=== PATIENT | female | born 1975 | race Caucasian/White ===

== ENCOUNTER 2017-06-29 16:29 | Emergency (ER) | payer OTHER ==
[2017-06-29 16:40] VITALS: BP 103/66
[2017-06-29 20:10] LABS: Hematocrit 40 % (35-47); Hemoglobin 13.3 g/dl (12.0-16.0); Mean Corpuscular HGB Conc 33 g/dl (31-36); Mean Corpuscular Hemoglobin 30 pg (27-31); Mean Corpuscular Volume 90 fL (80-97); Mean Platelet Volume 11 um3 (7.4-10.4); Red Blood Count 4.44 10^6/ul (4.0-5.4); Red Cell Distribution Width 14 % (10.5-15); White Blood Count 4.3 10^3/ul (3.5-10.8)
[2017-06-29 20:16] LABS: Albumin 3.8 g/dL (3.2-5.2); BUN/Creatinine Ratio 10.4 (8-20); Calcium 8.7 mg/dL (8.6-10.3); EGFR African American 104.7 (>60); EGFR Non-African American 81.4 (>60); Globulin 2.5 g/dL (2-4); Potassium 3.7 mmol/L (3.5-5.0); Total Bilirubin 0.2 mg/dL (0.2-1.0); Total Protein 6.3 g/dL (6.4-8.9)
--- NOTE | 2017-07-02 09:29 | UC ---
Progress - Progress Note Progress Note: urine cx is negative. pt was placed on doxy. lyme titer neg. Note is not completed from day of visit. d/c dx was fever in adult. pt temp 102. Unable to determine whether pt should cont abx or not b/c note is incomplete. Pt should f/u with PCP for further determination. Or f/u can be deferred to provider who treated pt.
--- NOTE | 2017-08-10 15:07 | UC ---
HPI Febrile Illness - HPI Summary HPI Summary: 42 YEAR OLD FEMALE PRESENTS WITH FEVER, CHILLS, AND BODY ACHES. - History of Current Complaint Chief Complaint: UCGeneralIllness Time Seen by Provider: 06/29/17 16:48 Hx Obtained From: Patient Hx Last Menstrual Period: LAST WK Onset/Duration: Started Hours Ago Timing: Constant Initial Severity: Moderate Current Severity: Moderate Pain Intensity: 7 Pain Scale Used: 0-10 Numeric - Allergy/Home Medications Allergies/Adverse Reactions: Allergies Allergy/AdvReac Type Severity Reaction Status Date / Time Erythromycin AdvReac GI/vomiting Verified 06/29/17 16:40 Home Medications: Home Medications Hydrocodone-Acetaminophen [Hydrocodone Bitartrate/AC 7.5-300 mg] 1 tab PO Q4H PRN 06/29/17 [History Confirmed 06/29/17] PMH/Surg Hx/FS Hx/Imm Hx Previously Healthy: Yes - Surgical History Surgical History: Yes Surgery Procedure, Year, and Place: gallbladder. appendectomy - Family History Known Family History: Positive: Unknown - Social History Alcohol Use: None Substance Use Type: Marijuana Smoking Status (MU): Current Every Day Smoker Type: Cigarettes Amount Used/How Often: 1 PPD Length of Time of Smoking/Using Tobacco: 20 YRS Household Exposure Type: Cigarettes Review of Systems Constitutional: Fever, Chills, Fatigue Skin: Negative Eyes: Negative ENT: Negative Respiratory: Negative Cardiovascular: Negative Gastrointestinal: Negative Genitourinary: Negative Motor: Negative Neurovascular: Negative Musculoskeletal: Negative Neurological: Negative Psychological: Negative All Other Systems Reviewed And Are Negative: Yes Physical Exam Triage Information Reviewed: Yes Appearance: Ill-Appearing Vital Signs: Initial Vital Signs Temp 39.0 C 06/29/17 16:33 Pulse 129 06/29/17 16:33 Resp 18 06/29/17 16:33 BP 103/66 06/29/17 16:33 Pulse Ox 99 06/29/17 16:33 Vital Signs Reviewed: Yes Eye Exam: Normal ENT Exam: Normal ENT: Positive: Pharyngeal erythema Dental Exam: Normal Neck exam: Normal Neck: Positive: 1 Respiratory Exam: Normal Respiratory: Positive: Decreased breath sounds Cardiovascular: Positive: Tachycardia Abdominal Exam: Normal Musculoskeletal Exam: Normal Neurological Exam: Normal Psychological Exam: Normal Skin Exam: Normal Course/Dx - Diagnoses Clinic Provider Diagnoses: fever. chills. bodyache Discharge - Discharge Plan Condition: Stable Disposition: HOME Prescriptions: DOXYcycline CAP(*) [DOXYcycline 100MG CAP(*)] 100 mg PO BID #42 cap Patient Education Materials: Fever in Adults (ED) Referrals: Emmy Bates [Primary Care Provider] - As Soon As Possible
== END 2017-06-29 17:26 | disposition home or self-care (01) ==
LOC: UCCORT 16:29
DX: R50.9 Fever, unspecified (principal); M79.1 Myalgia; R00.0 Tachycardia, unspecified; Z32.02 Encounter for pregnancy test, result negative; Z88.1 Allergy status to other antibiotic agents; Z90.49 Acquired absence of other specified parts of digestive tract; F12.90 Cannabis use, unspecified, uncomplicated; F17.210 Nicotine dependence, cigarettes, uncomplicated
CPT/HCPCS: 36415; 80053; 81003; 84702; 85025; 86618; 87086; 87502; 87651; 99212; G0463

== ENCOUNTER 2019-10-15 13:58 | Emergency (ER) | payer OTHER ==
[2019-10-15 14:24] VITALS: BP 120/61
--- NOTE | 2019-10-15 14:35 | UC ---
Throat Pain/Nasal Wilian HPI - HPI Summary HPI Summary: 44-year-old female who has had a sore throat for approximately 2 weeks. She states she was just experiencing a "flareup" of her lupus and thought the sore throat was because of that. She denies any cold symptoms. She denies any fever or chills. - History of Current Complaint Chief Complaint: UCGeneralIllness Stated Complaint: ST Time Seen by Provider: 10/15/19 14:02 Hx Obtained From: Patient Hx Last Menstrual Period: LAST WK ?: No Onset/Duration: Gradual Onset Severity: Moderate Pain Intensity: 6 Cough: None Associated Signs & Symptoms: Positive: Negative - Allergies/Home Medications Allergies/Adverse Reactions: Allergies Allergy/AdvReac Type Severity Reaction Status Date / Time erythromycin base Allergy Vomiting Verified 10/15/19 14:25 Home Medications: Home Medications Aspirin 81 mg CHEW TAB* [Aspirin Low Dose TAB*] 81 mg PO DAILY 10/15/19 [ History Confirmed 10/15/19] Oxycodone HCl 5 mg PO TID 10/15/19 [History Confirmed 10/15/19] PMH/Surg Hx/FS Hx/Imm Hx Previously Healthy: Yes Respiratory History: Asthma GI/ History: Ulcer - Surgical History Surgical History: Yes Surgery Procedure, Year, and Place: gallbladder. appendectomy - Family History Known Family History: Positive: Unknown - Social History Alcohol Use: None Substance Use Type: Marijuana Substance Use Comment - Amount & Last Used: medical Smoking Status (MU): Former Smoker Type: Cigarettes Amount Used/How Often: 1 PPD Length of Time of Smoking/Using Tobacco: 20 YRS When Did the Patient Quit Smoking/Using Tobacco: 2017 Household Exposure Type: Cigarettes Review of Systems All Other Systems Reviewed And Are Negative: Yes ENT: Positive: Sore Throat Is Patient Immunocompromised?: No Physical Exam Triage Information Reviewed: Yes Appearance: Well-Appearing, No Pain Distress, Well-Nourished Vital Signs: Initial Vital Signs Temp 98.7 F 10/15/19 14:19 Pulse 81 10/15/19 14:19 Resp 18 10/15/19 14:19 BP 120/61 10/15/19 14:19 Pulse Ox 98 10/15/19 14:19 Vital Signs Reviewed: Yes Eyes: Positive: Conjunctiva Clear ENT: Positive: Pharyngeal erythema - Pharyngeal erythema with white patches consistent with oral candidiasis., TMs normal, Uvula midline Neck: Positive: Supple, Nontender, No Lymphadenopathy Respiratory: Positive: Lungs clear, Normal breath sounds, No respiratory distress, No accessory muscle use Cardiovascular: Positive: RRR, No Murmur, Pulses Normal, Brisk Capillary Refill Musculoskeletal Exam: Normal Neurological Exam: Normal Psychological Exam: Normal Skin Exam: Normal Throat Pain/Nasal Course/Dx - Course Course Of Treatment: Patient is comfortable here. Rapid strep test was negative. I am going to treat her for thrush with Diflucan. She is to follow-up with her primary care provider if no improvement by next Monday. She does have an appointment with her primary care provider on 20 October. - Differential Dx/Diagnosis Provider Diagnosis: Thrush, oral Discharge ED - Sign-Out/Discharge Documenting (check all that apply): Patient Departure All imaging exams completed and their final reports reviewed: No Studies - Discharge Plan Condition: Fair Disposition: HOME Prescriptions: Fluconazole 100 MG TAB* [Diflucan 100 MG TAB*] 100 mg PO DAILY 10 Days #11 tab Patient Education Materials: Oral Candidiasis (ED) Referrals: Emmy Bates [Primary Care Provider] - Additional Instructions: Take 2 tablets of the fluconazole today and then 1 tablet daily for 10 days. Definite follow-up with your primary care provider if any worsening symptoms or if no improvement after 4 or 5 days. - Billing Disposition and Condition Condition: FAIR Disposition: Home
--- OUTSIDE RECORDS SUMMARY | 2019-10-15 16:45 | XMS REPORT | Continuity of Care Document ---
:1975 External Reference #:[id number] Author Name Chuck Luu DO, MPH Address [address] [place] [address], [address] [place] [address] Care Team Providers Name Role Phone Jennifer Gasca MD - Internal Medicine Care Team Information Svp Marketing Problems Active Problems Provider Date Sacrococcygeal disorders, not elsewhere Chuck Luu DO MPH Onset: 2018 classified Solitary sacroiliitis Cuhck Luu DO MPH Onset: 09/21/2019 Synovitis and tenosynovitis Chuck Luu DO, MPH Onset: 09/21/2019 Somatic dysfunction of lumbar region Chuck Luu DO, MPH Onset: 09/21/2019 Low back pain Chuck Luu, DO, MPH Onset: 09/21/2019 Somatic dysfunction of pelvic region Chuck Luu, DO, MPH Onset: 09/21/2019 Arthralgia of the pelvic region and thigh Chuck Luu, DO, MPH Onset: 2018 Somatic dysfunction of sacroiliac joint Chuck Luu, DO, MPH Onset: 2018 Chronic pain Chuck Luu, DO, MPH Onset: 09/21/2019 Social History Type Date Description Comments Sex Unknown ETOH Use Denies alcohol use Tobacco Use Start: Unknown End: Unknown Patient is a former smoker Recreational Drug Use Denies Drug Use Smoking Status Reviewed: 09/21/19 Patient is a former smoker Allergies, Adverse Reactions, Alerts Active Allergies Reaction Severity Comments Date Prednisone 07/10/2018 Anti-Depressants 07/10/2018 Doxycycline 07/10/2018 Erythromycin 07/10/2018 Medications Active Medications SIG Qnty Indications Ordering Provider Date Oxycodone HCL si by mouth 90tabs Chuck Luu DO, 07/25/2018 5mg every 8 hours as MPH Tablets directed chronic pain patient Vitamin D3 Super 1 by mouth daily Unknown Strength 2000Unit Capsules CBD Oil vape five times a Unknown day THC vape 5 times a Unknown day Prednisone si by mouth Unknown 5mg Tablets every day as directed Zantac 1 by mouth twice Unknown 150mg Tablets a day Immunizations Description No Information Available Vital Signs Date Vital Result Comment 10/01/2019 10:37am BP Systolic 128 mmHg BP Diastolic 84 mmHg Heart Rate 86 /min Respiratory Rate 20 /min Height 61 inches 5'1" Weight 124.00 lb Pain Level 6 Pain at this time. Pain Level With Medicine 5 on average with meds Pain Level Without Medicine 9 without meds BMI (Body Mass Index) 23.4 kg/m2 09/21/2019 8:48am BP Systolic 122 mmHg BP Diastolic 78 mmHg Heart Rate 74 /min Respiratory Rate 20 /min Height 61 inches 5'1" Weight 131.00 lb Pain Level 6 Pain at this time. Pain Level With Medicine 6 on average with meds Pain Level Without Medicine 9 without meds Pain Level After Procedure 3 BP Systolic Recheck 120 mmHg Pulse: 72 BP Diastolic Recheck 70 mmHg Pulse: 72 BMI (Body Mass Index) 24.7 kg/m2 Procedures Date Code Description Status 09/21/2019 25915 Omt 3-4 Body Regions Completed 09/21/2019 Arthrocentesis/Aspiration/Inj Of Major Joint Or Bursa W/ Completed Ultra 09/21/2019 Arthrocentesis/Aspiration/Inj Of Major Joint Or Bursa W/ Completed Ultra 09/16/2019 03153 Omt 3-4 Body Regions Completed 08/30/2019 94635 Omt 1-2 Body Regions Completed 08/30/2019 Arthrocentesis/Aspiration/Inj Of Major Joint Or Bursa W/ Completed Ultra 07/10/2019 Arthrocentesis/Aspiration/Inj Of Major Joint Or Bursa W/ Completed Ultra 06/25/2019 21731 Omt 5-6 Body Regions Completed 05/23/2019 03765 Omt 5-6 Body Regions Completed 05/04/2019 25689 Omt 3-4 Body Regions Completed 05/04/2019 Arthrocentesis/Aspiration/Inj Of Major Joint Or Bursa W/ Completed Ultra 04/24/2019 27731 Therapeutic, Prophylactic Or Diagnostic Injection Subq/Im Completed 04/02/2019 Arthrocentesis/Aspiration/Inj Of Major Joint Or Bursa W/ Completed Ultra Medical Devices Description No Information Available Encounters Type Date Location Provider Dx Diagnosis Office Visit 09/21/2019 Main Office as Of Chuck Luu DO G89.29 Other chronic pain 9:00a 12/14/13 MPH M46.1 Sacroiliitis, not elsewhere classified M53.3 Sacrococcygeal disorders, not elsewhere classified M99.04 Segmental and somatic dysfunction of sacral region M25.551 Pain in right hip M25.552 Pain in left hip M99.05 Segmental and somatic dysfunction of pelvic region M54.5 Low back pain M99.03 Segmental and somatic dysfunction of lumbar region M65.88 Other synovitis and tenosynovitis, other site Office Visit 09/16/2019 1:00p Main Office as Chuck Luu G89.29 Other chronic Of 12/14/13 DO, MPH pain M54.2 Cervicalgia M99.01 Segmental and somatic dysfunction of cervical region M54.6 Pain in thoracic spine M99.02 Segmental and somatic dysfunction of thoracic region M54.5 Low back pain M99.03 Segmental and somatic dysfunction of lumbar region M46.1 Sacroiliitis, not elsewhere classified Z79.891 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 (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 Office Visit 08/30/2019 1:30p Main Office as Chuck Luu G89.29 Other chronic Of 12/14/13 DO, MPH pain M25.551 Pain in right hip M25.552 Pain in left hip M99.05 Segmental and somatic dysfunction of pelvic region M46.1 Sacroiliitis, not elsewhere classified Office Visit 07/10/2019 3:00p Main Office as Chuck Luu G89.29 Other chronic Of 12/14/13 DO, MPH pain M54.2 Cervicalgia M54.6 Pain in thoracic spine M54.5 Low back pain M53.3 Sacrococcygeal disorders, not elsewhere classified M25.551 Pain in right hip M25.552 Pain in left hip Z79.891 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 (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 Office Visit 06/25/2019 10:00a Main Office as Chuck Luu G89.29 Other chronic Of 12/14/13 DO, MPH pain M54.2 Cervicalgia M99.01 Segmental and somatic dysfunction of cervical region M54.6 Pain in thoracic spine M99.02 Segmental and somatic dysfunction of thoracic region M54.5 Low back pain M99.03 Segmental and somatic dysfunction of lumbar region M53.3 Sacrococcygeal disorders, not elsewhere classified M99.04 Segmental and somatic dysfunction of sacral region M25.551 Pain in right hip M25.552 Pain in left hip Z79.891 [employer] (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 M99.05 Segmental and somatic dysfunction of pelvic region Office Visit 05/23/2019 10:15a Main Office as Chuck Luu G89.29 Other chronic Of 12/14/13 DO, MPH pain 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 M54.5 Low back pain M99.03 Segmental and somatic dysfunction of lumbar region M54.2 Cervicalgia M99.01 Segmental and somatic dysfunction of cervical region M54.6 Pain in thoracic spine M99.02 Segmental and somatic dysfunction of thoracic region M53.3 Sacrococcygeal disorders, not elsewhere classified R53.83 Other fatigue Z79.891 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 (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 M99.04 Segmental and somatic dysfunction of sacral region G90.3 Multi-system degeneration of the autonomic nervous system M25.552 Pain in left hip M25.551 Pain in right hip M99.05 Segmental and somatic dysfunction of pelvic region Office Visit 05/04/2019 9:00a Main Office as Chuck Luu G89.29 Other chronic Of 12/14/13 DO, MPH pain 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 M53.3 Sacrococcygeal disorders, not elsewhere classified M99.04 Segmental and somatic dysfunction of sacral region M54.5 Low back pain M99.03 Segmental and somatic dysfunction of lumbar region M25.551 Pain in right hip M99.05 Segmental and somatic dysfunction of pelvic region Office Visit 04/24/2019 11:15a Main Office as Chuck Luu G89.29 Other chronic Of 12/14/13 DO, MPH pain M53.3 Sacrococcygeal disorders, not elsewhere classified M54.5 Low back pain 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 R53.83 Other fatigue Z79.891 [employer] (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 Office Visit 04/02/2019 10:15a Main Office as Luu, Chuck, G89.29 Other chronic Of 12/14/13 DO, MPH pain 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 M53.3 Sacrococcygeal disorders, not elsewhere classified M54.5 Low back pain Assessments Date Code Description Provider 10/01/2019 G89.29 Other chronic pain Luu, Chuck, DO, MPH 10/01/2019 M25.551 Pain in right hip Luu, Chuck, DO, MPH 10/01/2019 M25.552 Pain in left hip Luu, Chuck, DO, MPH 10/01/2019 M54.2 Cervicalgia Luu, Chuck, DO, MPH 10/01/2019 Z79.891 [employer] (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 Luu, Chuck , DO, MPH 09/21/2019 G89.29 Other chronic pain Luu, Chuck, DO, MPH 09/21/2019 M46.1 Sacroiliitis, not elsewhere classified Luu, Chuck, DO, MPH 09/21/2019 M53.3 Sacrococcygeal disorders, not elsewhere Luu, Chuck, DO, MPH classified 09/21/2019 M99.04 Segmental and somatic dysfunction of sacral Luu, Chuck, DO, MPH region 09/21/2019 M25.551 Pain in right hip Luu, Chuck, DO, MPH 09/21/2019 M25.552 Pain in left hip Luu, Chuck, DO, MPH 09/21/2019 M99.05 Segmental and somatic dysfunction of pelvic Luu, Chuck, DO, MPH region 09/21/2019 M54.5 Low back pain Luu, Chuck, DO, MPH 09/21/2019 M99.03 Segmental and somatic dysfunction of lumbar Luu, Chuck, DO, MPH region 09/21/2019 M65.88 Other synovitis and tenosynovitis, other Luu, Chuck, DO , MPH site 09/16/2019 G89.29 Other chronic pain Luu, Chuck, DO, MPH 09/16/2019 M54.2 Cervicalgia Luu, Chuck, DO, MPH 09/16/2019 M99.01 Segmental and somatic dysfunction of Luu, Chuck, DO, MPH cervical region 09/16/2019 M54.6 Pain in thoracic spine Luu, Chuck, DO, MPH 09/16/2019 M99.02 Segmental and somatic dysfunction of Luu, Chuck, DO, MPH thoracic region 09/16/2019 M54.5 Low back pain Luu, Chuck, DO, MPH 09/16/2019 M99.03 Segmental and somatic dysfunction of lumbar Luu, Chuck, DO, MPH region 09/16/2019 M46.1 Sacroiliitis, not elsewhere classified Luu, Chuck, DO, MPH 09/16/2019 Z79.891 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 (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 Luu, Chuck , DO, MPH 08/30/2019 G89.29 Other chronic pain Luu, Chuck, DO, MPH 08/30/2019 M25.551 Pain in right hip Luu, Chuck, DO, MPH 08/30/2019 M25.552 Pain in left hip Luu, Chuck, DO, MPH 08/30/2019 M99.05 Segmental and somatic dysfunction of pelvic Luu, Chuck, DO, MPH region 08/30/2019 M46.1 Sacroiliitis, not elsewhere classified Luu, Chuck, DO, MPH 07/10/2019 G89.29 Other chronic pain Luu, Chuck, DO, MPH 07/10/2019 M54.2 Cervicalgia Luu, Chuck, DO, MPH 07/10/2019 M54.6 Pain in thoracic spine Luu, Chuck, DO, MPH 07/10/2019 M54.5 Low back pain Luu, Chuck, DO, MPH 07/10/2019 M53.3 Sacrococcygeal disorders, not elsewhere Luu, Chuck, DO, MPH classified 07/10/2019 M25.551 Pain in right hip Luu, Chuck, DO, MPH 07/10/2019 M25.552 Pain in left hip Luu, Chuck, DO, MPH 07/10/2019 Z79.891 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 (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 Luu, Chuck , DO, MPH 06/25/2019 G89.29 Other chronic pain Luu, Chuck, DO, MPH 06/25/2019 M54.2 Cervicalgia Luu, Chuck, DO, MPH 06/25/2019 M99.01 Segmental and somatic dysfunction of Luu, Chuck, DO, MPH cervical region 06/25/2019 M54.6 Pain in thoracic spine Luu, Chuck, DO, MPH 06/25/2019 M99.02 Segmental and somatic dysfunction of Luu, Chuck, DO, MPH thoracic region 06/25/2019 M54.5 Low back pain Luu, Chuck, DO, MPH 06/25/2019 M99.03 Segmental and somatic dysfunction of lumbar Luu, Chuck, DO, MPH region 06/25/2019 M53.3 Sacrococcygeal disorders, not elsewhere Luu, Chuck, DO, MPH classified 06/25/2019 M99.04 Segmental and somatic dysfunction of sacral Luu, Chuck, DO, MPH region 06/25/2019 M25.551 Pain in right hip Luu, Chuck, DO, MPH 06/25/2019 M25.552 Pain in left hip Luu, Chuck, DO, MPH 06/25/2019 Z79.891 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 (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 Luu, Chuck , DO, MPH 06/25/2019 M99.05 Segmental and somatic dysfunction of pelvic Luu, Chuck, DO, MPH region 05/23/2019 G89.29 Other chronic pain Luu, Chuck, DO, MPH 05/23/2019 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 Luu, Chuck, DO, MPH arthritis of multiple sites 05/23/2019 M54.5 Low back pain Luu, Chuck, DO, MPH 05/23/2019 M99.03 Segmental and somatic dysfunction of lumbar Luu, Chuck, DO, MPH region 05/23/2019 M54.2 Cervicalgia Luu, Chuck, DO, MPH 05/23/2019 M99.01 Segmental and somatic dysfunction of Luu, Chuck, DO, MPH cervical region 05/23/2019 M54.6 Pain in thoracic spine Luu, Chuck, DO, MPH 05/23/2019 M99.02 Segmental and somatic dysfunction of Luu, Chuck, DO, MPH thoracic region 05/23/2019 M53.3 Sacrococcygeal disorders, not elsewhere Luu, Chuck, DO, MPH classified 05/23/2019 R53.83 Other fatigue Luu, Chuck, DO, MPH 05/23/2019 Z79.891 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 (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 Luu, Chuck , DO, MPH 05/23/2019 M99.04 Segmental and somatic dysfunction of sacral Luu, Chuck, DO, MPH region 05/23/2019 G90.3 Multi-system degeneration of the autonomic Luu, Chuck, DO , MPH nervous system 05/23/2019 M25.552 Pain in left hip Luu, Chuck, DO, MPH 05/23/2019 M25.551 Pain in right hip Luu, Chuck, DO, MPH 05/23/2019 M99.05 Segmental and somatic dysfunction of pelvic Luu, Chuck, DO, MPH region 05/04/2019 G89.29 Other chronic pain Luu, Chuck, DO, MPH 05/04/2019 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 Luu, Chuck, DO, MPH arthritis of multiple sites 05/04/2019 M53.3 Sacrococcygeal disorders, not elsewhere Luu, Chuck, DO, MPH classified 05/04/2019 M99.04 Segmental and somatic dysfunction of sacral Luu, Chuck, DO, MPH region 05/04/2019 M54.5 Low back pain Luu, Chuck, DO, MPH 05/04/2019 M99.03 Segmental and somatic dysfunction of lumbar Luu, Chuck, DO, MPH region 05/04/2019 M25.551 Pain in right hip Luu, Chuck, DO, MPH 05/04/2019 M99.05 Segmental and somatic dysfunction of pelvic Luu, Chuck, DO, MPH region 04/24/2019 G89.29 Other chronic pain Luu, Chuck, DO, MPH 04/24/2019 M53.3 Sacrococcygeal disorders, not elsewhere Chuck Luu DO, MPH classified 04/24/2019 M54.5 Low back pain Chuck Luu DO, MPH 04/24/2019 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 LuuChuck martinez DO, MPH arthritis of multiple sites 04/24/2019 R53.83 Other fatigue LuuChuck martinez DO, MPH 04/24/2019 Z79.891 [employer] (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 Chuck Luu DO, MPH 04/02/2019 G89.29 Other chronic pain Chuck Luu DO, MPH 04/02/2019 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 LuuChuck martinez DO, MPH arthritis of multiple sites 04/02/2019 M53.3 Sacrococcygeal disorders, not elsewhere Chuck Luu DO, MPH classified 04/02/2019 M54.5 Low back pain Chuck Luu DO, MPH Plan of Treatment Future Appointment(s):10/08/2019 10:00 am - Chuck Luu DO MPH at Main Office as Of 12/14/1410 12:30 pm - Chuck Luu DO MPH at Main Office as Of 12/14/1411 10:30 am - Chuck Luu DO MPH at Main Office as Of 12/14 - Chuck Luu DO, MPHG89.29 Other chronic painComments:Chronic. Symptoms and complaints discussed and reviewed today. No significant changes in physical findings. Continue current medical pain management.M25.551 Pain in right hipNew Xrays:Hip, Arthrography, RT, Ordered: 10/01/19Comments:Chronic. Symptoms and complaints discussed and reviewed today. No significant changes in physical findings. Continue current medical pain management.M25.552 Pain in left hipComments:Chronic. Symptoms and complaints discussed and reviewed today. No significant changes in physical findings. Continue current medical pain management.M54.2 CervicalgiaComments:Chronic. Symptoms and complaints discussed and reviewed today. No significant changes in physical findings. Continue current medical pain management.Z79.891 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 (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New Labs:Urine Drug Screen, Ordered: 10/01/19Comments:Urine drug screen sample taken. Rapid Point of Care Cup was reviewed in office with patient. Will send out UDT Rapid to [facility] lab for confirmation testing. Urine Drug Testing (UDT) was done today to monitor opiate use and to monitor possible use of illicit substances. I will discuss the results at the next appointment from the [facility] lab.The following tests were ordered:6 AM, AMPH, PRESTON, EZEKIEL, BUP, CARIS, COCM, ETG, FENT, MCSHSG, OPI, OXY, PCP, TAPEN, XTSY, ZOLP. A urine drug test (UDT) was ordered for this patient and collected on site today. Creatinine has been ordered as well for specimen validity, not for kidney function. Preliminary UDT results are not final and should not be used to determine patient care or plan of treatment. Initially a qualitative immunoassay screen will be done. Any inconsistent or positive findings will be further tested with a more comprehensive quantitative confirmation LCMS study. It is part of the treatment process of prescribing controlled substances and is considered standard of care.AllComments:Continue current medical pain management; injection therapy, osteopathic manipulation, PT / modalities, and consults as needed to manage chronic pain.Non - opioid pain management discussed and optionsdiscussed.Side effects discussed; anticipatory guidance given. Patient clearly understand and agree with all medical treatments and suggestions. All medicines prescribed are adequate and appropriate for this patient's complaint of pain, medical history, physical, and personal goals.Goals of Treatment are to provide adequate and appropriate multidisciplinary medical pain management to increase/ maintain patient's quality of life and functionality while maintaining satisfactory side effect profile andminimizing detention end-organ damage. Importance of regular nutrition throughout the day discussed.Activity as toleratedContinue with PCP Functional Status Description No Information Available Mental Status Description No Information Available Referrals Description No Information Available
--- OUTSIDE RECORDS SUMMARY | 2019-10-15 16:45 | XMS REPORT | Continuity of Care Document ---
:1975 External Reference #:[id number] Author Name Julieta Cottrell, DOUBLE BOTTOM DRIVER Address [address] [place] [address] Care Team Providers Name Role Phone Jennifer Gasca MD - Internal Medicine Care Team Information Loop Sewer Fernando Butler MD - Rheumatology Care Team Information Loop Sewer [phone] Problems Active Problems Provider Date Lyme disease Aleja Galindo M.D. Onset: 09/11/2017 Joint pain Aleja Galindo M.D. Onset: 09/11/2017 Abnormal sputum Aleja Galindo M.D. Onset: 09/11/2017 Chest pain Aleja Galindo M.D. Onset: 10/23/2017 Dyspnea Aleja Galindo M.D. Onset: 10/23/2017 Alopecia Aleja Galindo M.D. Onset: 12/11/2017 Anemia Aleja Galindo M.D. Onset: 12/11/2017 Beau's lines Aleja Galindo M.D. Onset: 12/11/2017 Iron deficiency Delonte Hendrix DO Onset: 12/14/2017 Systemic lupus erythematosus Jennifer Gasca MD Onset: 02/08/2018 Chronic combined systolic and Jennifer Gasca MD Onset: 02/08/2018 diastolic heart failure Mild cognitive disorder Aleja Galindo M.D. Onset: 02/12/2018 Palpitations Jennifer Gasca MD Onset: 02/08/2018 Counseling Jennifer Gasca MD Onset: 02/08/2018 Dizziness and giddiness Jennifer Gasca MD Onset: 05/11/2018 Immunization Jennifer Gasca MD Onset: 05/11/2018 Adult health examination Jennifer Gasca MD Onset: 05/11/2018 Vitamin D deficiency Jennifer Gasca MD Onset: 05/11/2018 Bilateral carpal tunnel syndrome Jennifer Gasca MD Onset: 05/11/2018 Pain in right arm Dilia Anguiano MD Onset: 05/22/2018 Pain in left arm Dilia Anguiano MD Onset: 05/22/2018 Skin sensation disturbance Dilia Anguiano MD Onset: 05/22/2018 Gynecologic examination Catia Nguyen CNM Onset: 06/07/2018 Encounter for removal and Catia Nguyen CNM Onset: 06/07/2018 reinsertion of intrauterine contraceptive device Unspecified visual loss Catia Nguyen CNM Onset: 06/07/2018 IUD check Catia Nguyen CNM Onset: 07/06/2018 Mild cognitive disorder Alice Walter MS, HOME CARE AIDE-C, Onset: 11/30/2018 CNM Social History Type Date Description Comments Sex Unknown Tobacco Use Start: Unknown End: Quit June 2017 Unknown Smoking Status Reviewed: 12/04/18 Quit June 2017 ETOH Use Denies alcohol use Recreational Drug Use Denies Drug Use Tobacco Use Start: Unknown End: Patient is a former Since a teenager Unknown smoker Exercise Type/Frequency Does not exercise Allergies, Adverse Reactions, Alerts Active Allergies Reaction Severity Comments Date Erythromycin Nausea and Vomiting 03/30/2012 Erythromycin Nausea/Vomiting 07/12/2017 Ipratropium Made Joints Hurt 07/12/2017 Prednisone Nausea and Vomiting 08/08/2017 Doxycycline Nausea and Vomiting 08/15/2017 Medications Active Medications SIG Qnty Indications Ordering Provider Date Medical Marijuana prn Unknown Aspirin Ec Low Dose 1 daily 90tabs Jennifer Gasca MD 81mg Tablets Oxycodone HCL 1 tab three Chuck Luu MD 5mg Tablets times a day Immunizations CPT Code Status Date Vaccine Lot # [id number] Given 05/11/2018 Pneumovax Injection [id number] Given 05/11/2018 Tdap injection [id number] Vital Signs Date Vital Result Comment 10/01/2019 2:39pm BP Systolic 144 mmHg BP Diastolic 92 mmHg Body Temperature 98.6 F Heart Rate 88 /min Respiratory Rate 16 /min Weight 123.38 lb O2 % BldC Oximetry 97 % Pain Level 0 08/29/2019 3:08pm BP Systolic 129 mmHg BP Diastolic 70 mmHg Body Temperature 98.6 F Heart Rate 80 /min Respiratory Rate 16 /min Weight 128.50 lb O2 % BldC Oximetry 96 % Pain Level 0 Results Test Acquired Date Facility Test Result H/L Range Note Iron-Tibc-%Sa 09/23/2019 [facility] Serum Iron 141 g/dL Normal 50-170 1 t [address] [place], [place] [id number] [phone] Total Iron Binding Capacity 313 g/dL Normal 250-450 Transferrin %Saturation 45 % Normal 12-57 Laboratory test 09/23/2019 [facility] Ferritin 105 ng/mL Normal 8-252 finding [address] [place], [place] [id number] [phone] CBC W/Automated 09/23/2019 [facility] White Blood 16.1 K/uL High 3.1-10.[address] [place] [address] [phone] Red Blood Count 4.66 M/uL Normal 3.90-5.40 Hemoglobin 14.9 gm/dL Normal 11.6-15.8 Hematocrit 43.8 % Normal 36.0-46.1 Mean Cell Volume 94.0 fl Normal 80.9-99.0 Mean Corpuscular HGB 32.0 pg Normal 25.9-32.7 Mean Corpuscular HGB Conc 34.0 g/dL Normal 30.8-34.3 Platelet Count 291 K/uL Normal 155-360 Red Cell Distri Width SD 47.1 fl High 36-47 Red Cell Distri Width %CV 13.7 % Normal 11.7-14.4 Mean Platelet Volume 12.0 fl Normal 8.9-12.4 Neut% 88.2 % High 40.4-72.8 Lymph % 4.4 % Low 20.0-42.0 Gentry % 6.4 % Normal 4.3-13.2 Eo% 0.0 % Normal 0.0-6.6 Bas% 0.2 % Normal 0.0-1.1 Immature Grans 0.8 % Normal 0.0-5.0 NRBC % 0.0 /100WBC < 10/ 100 WBC Neut# 14.22 K/uL High 1.8-7.0 Lymph # 0.71 K/uL Low 1.0-4.0 Gentry # 1.03 K/uL High 0.3-0.9 Eos # 0.00 K/uL Normal 0.0-0.5 Baso # 0.03 K/uL Normal 0.0-0.1 Immature Grans Absolute 0.13 K/uL NRBC # 0.00 K/uL Comprehensive 09/23/2019 [facility] Glucose 105 mg/dL Normal 74-106 Metabolic Panel [address] [place], [place] [id number] [phone] BUN 16 mg/dL Normal 7-18 Creatinine 0.8 mg/dL Normal 0.6-1.3 Glom Filtration Rate, Estimate >60 mL/min >60 If >60 mL/min >60 2 BUN/Creat 20.0 ratio Sodium 137 mmol/L Normal 136-145 Potassium 3.5 mmol/L Normal 3.5-5.1 Chloride 106 mmol/L Normal 98-107 Carbon Dioxide 26 mmol/L Normal 21-32 Anion Gap 5 mEq/L Low 8-16 Calcium 9.3 mg/dL Normal 8.5-10.1 Total Protein 7.6 g/dL Normal 6.4-8.2 Albumin 4.4 g/dL Normal 3.4-5.0 Globulin 3.2 g/dL Normal 1.9-4.3 Alb/Glob 1.4 ratio Bilirubin,Total 0.6 mg/dL Normal 0.2-1.0 Sgot/Ast 15 U/L Normal 15-37 SGPT/Alt 25 U/L Normal 12-78 Alkaline Phosphatase 93 U/L Normal 45-117 Vitamin B12 And 09/23/2019 [facility] Vitamin B12 465 pg/mL Normal 193-[address] [place], [place] [address] [phone] Folic Acid 6.4 ng/mL Normal 3.1-17.5 TSH Reflex 09/02/2019 [facility] Thyroid Stim 1.15 uIU/mL Normal 0.30-4.20 3 FT4 And/Or [address] Hormone FT3 [place] [address] [phone] Reflex add FT3? Y Reflex add FT4? Y Laboratory test 08/29/2019 [facility] Vitamin <pending> [address] D,25-[place] [address] [phone] Vitamin B12 And 08/29/2019 [facility] Vitamin B12 669 pg/mL Normal 193- Folate [address] [place] [address] [phone] Folic Acid 7.3 ng/mL Normal 3.1-17.5 Laboratory test 08/29/2019 [facility] Ferritin 19 ng/mL Normal 8-252 finding [address] [place], [place] [address] [phone] Iron-Tibc-%Sat 08/29/2019 [facility] Serum Iron 91 g/dL Normal 50-170 [address] [place] [address] [phone] Total Iron Binding Capacity 403 g/dL Normal 250-450 Transferrin %Saturation 23 % Normal 12-57 LDL Cholesterol 08/29/2019 [facility] Cholesterol 235 mg/dL High <200 5 Profile [address] [place] [address] [phone] Triglycerides 68 mg/dL <150 6 HDL Cholesterol 58 mg/dL >40 7 LDL-Cholesterol 163 mg/dL < 100 8 Comprehensive 08/29/2019 [facility] Glucose 85 mg/dL Normal 74-106 Metabolic Panel [address] [place] [address] [phone] BUN 11 mg/dL Normal 7-18 Creatinine 0.8 mg/dL Normal 0.6-1.3 Glom Filtration Rate, Estimate >60 mL/min >60 If >60 mL/min >60 9 BUN/Creat 13.7 ratio Sodium 136 mmol/L Normal 136-145 Potassium 3.8 mmol/L Normal 3.5-5.1 Chloride 104 mmol/L Normal 98-107 Carbon Dioxide 29 mmol/L Normal 21-32 Anion Gap 3 mEq/L Low 8-16 Calcium 9.2 mg/dL Normal 8.5-10.1 Total Protein 8.6 g/dL High 6.4-8.2 Albumin 4.7 g/dL Normal 3.4-5.0 Globulin 3.9 g/dL Normal 1.9-4.3 Alb/Glob 1.2 ratio Bilirubin,Total 0.4 mg/dL Normal 0.2-1.0 Sgot/Ast 16 U/L Normal 15-37 SGPT/Alt 19 U/L Normal 12-78 Alkaline Phosphatase 126 U/L High 45-117 CBC W/Automated 08/29/2019 [facility] White Blood 15.7 K/uL High 3.1-10.[address] [place] [address] [phone] Red Blood Count 5.15 M/uL Normal 3.90-5.40 Hemoglobin 15.6 gm/dL Normal 11.6-15.8 Hematocrit 47.8 % High 36.0-46.1 Mean Cell Volume 92.8 fl Normal 80.9-99.0 Mean Corpuscular HGB 30.3 pg Normal 25.9-32.7 Mean Corpuscular HGB Conc 32.6 g/dL Normal 30.8-34.3 Platelet Count 359 K/uL Normal 155-360 Red Cell Distri Width SD 46.1 fl Normal 36-47 Red Cell Distri Width %CV 13.3 % Normal 11.7-14.4 Mean Platelet Volume 11.9 fl Normal 8.9-12.4 Neut% 86.1 % High 40.4-72.8 Lymph % 8.1 % Low 20.0-42.0 Gentry % 4.7 % Normal 4.3-13.2 Eo% 0.0 % Normal 0.0-6.6 Bas% 0.3 % Normal 0.0-1.1 Immature Grans 0.8 % Normal 0.0-5.0 NRBC % 0.0 /100WBC < 10/ 100 WBC Neut# 13.54 K/uL High 1.8-7.0 Lymph # 1.28 K/uL Normal 1.0-4.0 Gentry # 0.74 K/uL Normal 0.3-0.9 Eos # 0.00 K/uL Normal 0.0-0.5 Baso # 0.05 K/uL Normal 0.0-0.1 Immature Grans Absolute 0.12 K/uL NRBC # 0.00 K/uL Laboratory test 08/29/2019 [facility] Vitamin 39.5 30.0-100.0 [address] D,25-Hydroxy ng/[place] [address] [phone] 1 E55.9 E61.1 2 Note: Persistent reduction for 3 months or more in an eGFR <60 mL/min/1.73 m2 defines CKD. Patients with eGFR values >/=60 mL/min/1.73 m2 may also have CKD if evidence of persistent proteinuria is present. The original MDRD equation for estimated GFR is not valid for patients less than 18 years of age. Additional information may be found at www.kdoqi.org. 3 E61.1 E53.83 4 E55.9 E61.1 5 Reference Guidelines*: Desirable: ........... < 200 mg/dL Borderline High: ..... 200-239 mg/dL High: ................ >= 240 mg/dL * The National Cholesterol Education Program (NCEP) 6 Reference Guidelines*: Normal: ............. < 150 mg/dL Borderline High: .... 150-199 mg/dL High: ............... 200-499 mg/dL Very High: .......... > 500 mg/dL * Source: National Cholesterol Education Program (NCEP) 7 Reference Guidelines*: Low HDL: ..... < 40 mg/dL Normal: ..... 40-60 mg/dL Desirable: ... > 60 mg/dL *The National Cholesterol Education Program(NCEP) 8 Reference Guidelines*: Optimal:........... <100 mg/dL Near Optimal....... 100-129 mg/dL Borderline High.... 130-159 mg/dL High............... 160-189 mg/dL Very High.......... >=190 mg/dL * Source: National Cholesterol Education Program (NCEP) 9 Note: Persistent reduction for 3 months or more in an eGFR <60 mL/min/1.73 m2 defines CKD. Patients with eGFR values >/=60 mL/min/1.73 m2 may also have CKD if evidence of persistent proteinuria is present. The original MDRD equation for estimated GFR is not valid for patients less than 18 years of age. Additional information may be found at www.kdoqi.org. 10 Vitamin D deficiency has been defined by the Jansen of Medicine and an Endocrine Society practice guideline as a level of serum 25-OH vitamin D less than 20 ng/mL (1,2). The Endocrine Society went on to further define vitamin D insufficiency as a level between 21 and 29 ng/mL (2). 1. IOM (Jansen of Medicine). 2010. Dietary reference intakes for calcium and D. [place]: The National Academies Press. 2. Dionna MF, Jaime NC, Josh MARTINEZ, et al. Evaluation, treatment, and prevention of vitamin D deficiency: an Endocrine Society clinical practice guideline. JCEM. 2010; 96(7):4401-30. Performed at: RN - [facility] [address] [id number] [place] Operator: Deyanira Call MD, Phone: [phone] Procedures Date Code Description Status 04/30/2019 88552035 Mammogram Completed 03/14/2018 [id number] Mammogram Completed Medical Devices Description No Information Available Encounters Type Date Location Provider Dx Diagnosis Office Visit 08/29/2019 Infusion Center Julieta Cottrell, E61.1 Iron deficiency 3:00p DOUBLE BOTTOM DRIVER M32.9 Systemic lupus erythematosus, unspecified Assessments Date Code Description Provider 10/01/2019 E61.1 Iron deficiency Julieta Cottrell, DOUBLE BOTTOM DRIVER 10/01/2019 M32.9 Systemic lupus erythematosus, Julieta Cottrell, DOUBLE BOTTOM DRIVER unspecified 09/23/2019 E55.9 Vitamin D deficiency, unspecified Alem De Jesus, DO 09/23/2019 E55.9 Vitamin D deficiency, unspecified Oncology Nurse 09/23/2019 E61.1 Iron deficiency Alem De Jesus, DO 09/23/2019 E61.1 Iron deficiency Oncology Nurse 09/17/2019 E61.1 Iron deficiency Alice Walter MS, HOME CARE AIDE-C, CNM 09/17/2019 M32.9 Systemic lupus erythematosus, Alice Walter, , HOME CARE AIDE-C, unspecified CNM 09/17/2019 G31.84 Mild cognitive impairment, so Alice Walter MS, HOME CARE AIDE-C , stated CNM 09/17/2019 E55.9 Vitamin D deficiency, unspecified Alice Walter MS, HOME CARE AIDE-C, CNM 09/17/2019 E78.5 Hyperlipidemia, unspecified Alice Walter, , HOME CARE AIDE-C, CNM 09/17/2019 I51.81 Takotsubo syndrome Alice Walter, MS, HOME CARE AIDE-C, CNM 09/17/2019 D72.829 Elevated white blood cell count, Alice Walter MS, HOME CARE AIDE-C, unspecified CNM 08/29/2019 E61.1 Iron deficiency Julieta Cottrell, DOUBLE BOTTOM DRIVER 08/29/2019 M32.9 Systemic lupus erythematosus, Julieta Cottrell, DOUBLE BOTTOM DRIVER unspecified Plan of Treatment Future Appointment(s):10/29/2019 3:30 pm - Alem De Jesus DO at Oncology [id number]/21/2019 10:00 am - Alice Walter MS, HOME CARE AIDE-C, CNM at Primary Care [id number]/29/2019 - Julieta Cottrell, NPE61.1 Iron deficiencyComments:Iron sucrose 200 mg IV x2 doses. Iron studies will be checked one week after the second dose. As her symptoms may also be explained by thyroid issues, thyroid studies will be ordered and drawn will she is here for her first infusion.M32.9 Systemic lupus erythematosus, unspecifiedComments:Patient states that she is no longer following with a spa coordinator as she did not care for how shefelt on the medications. I did discuss with her that I'm concerned that this is a lupus flare as opposed to just a simple iron deficiency. I encouraged her to follow with her spa coordinator. She states that she will "think about it". Functional Status Functional Condition Comment Date Status Independent with all ADL's Active Mental Status Description No Information Available Referrals Description No Information Available
--- OUTSIDE RECORDS SUMMARY | 2019-10-15 16:45 | XMS REPORT | Continuity of Care Document ---
:1975 External Reference #:[id number] Author Name Chuck Luu DO, MPH Address [address] [place] [address], [address] [place] [address] Care Team Providers Name Role Phone Jennifer Gasca MD - Internal Medicine Care Team Information Paper Handler [phone] Problems Description No Information Available Social History Type Date Description Comments Sex Unknown ETOH Use Denies alcohol use Tobacco Use Start: Unknown End: Unknown Patient is a former smoker Recreational Drug Use Denies Drug Use Smoking Status Reviewed: 09/16/19 Patient is a former smoker Allergies, Adverse [...] Available Vital Signs Date Vital Result Comment 09/16/2019 1:05pm BP Systolic 128 mmHg BP Diastolic 78 mmHg Heart Rate 86 /min Respiratory Rate 20 /min Height 61 inches 5'1" Weight 130.00 lb Pain Level 7 Pain at this time. Pain Level With Medicine 6 on average with meds Pain Level Without Medicine 9 without meds BMI (Body Mass Index) 24.6 kg/m2 08/30/2019 1:35pm BP Systolic 136 mmHg BP Diastolic 86 mmHg Heart Rate 84 /min Respiratory Rate 20 /min Height 61 inches 5'1" Weight 130.00 lb Pain Level 9 Pain at this time. Pain Level With Medicine 8 on average with meds Pain Level Without Medicine 9 without meds Pain Level After Procedure 5 BP Systolic Recheck 128 mmHg Pulse:76 BP Diastolic Recheck 78 mmHg Pulse:76 BMI (Body Mass Index) 24.6 kg/m2 Results Description No Information Available Procedures Date Code Description Status 08/30/2019 28703 Omt 1-2 Body Regions Completed 08/30/2019 Arthrocentesis/Aspiration/Inj Of Major Joint Or Bursa W/ Completed Ultra 07/10/2019 Arthrocentesis/Aspiration/Inj Of Major Joint Or Bursa W/ Completed Ultra 06/25/2019 62593 Omt 5-6 Body Regions Completed 05/23/2019 24381 Omt 5-6 Body Regions Completed 05/04/2019 77248 Omt 3-4 Body Regions Completed 05/04/2019 Arthrocentesis/Aspiration/Inj Of Major Joint Or Bursa W/ Completed Ultra 04/24/2019 08853 Therapeutic, Prophylactic Or Diagnostic Injection Subq/Im Completed 04/02/2019 Arthrocentesis/Aspiration/Inj Of Major Joint Or Bursa W/ Completed Ultra 03/20/2019 63406 Omt 3-4 Body Regions Completed 03/20/2019 44926 Therapeutic, Prophylactic Or Diagnostic Injection Subq/Im Completed Medical Devices Description No Information Available Encounters Type Date Location Provider Dx Diagnosis Office Visit 08/30/2019 Main Office as Of Chuck Luu DO G89.29 Other chronic pain 1:30p 12/14/13 MPH M25.551 Pain in right hip M25.552 Pain [...] hip M25.552 Pain in left hip 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 Office Visit [...] hip M25.552 Pain in left hip 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 M99.05 Segmental [...] not elsewhere classified R53.83 Other fatigue Z79.891 [facility] (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 M99.04 Segmental [...] of multiple sites R53.83 Other fatigue Z79.891 [facility] (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 Office Visit 04/02/2019 10:15a Main Office as Luu, Chuck, G89.29 Other chronic Of 12/14/13 DO, MPH pain 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 M53.3 Sacrococcygeal disorders, not elsewhere classified M54.5 Low back pain Office Visit 03/20/2019 11:15a Main Office as Luu, Chuck, G89.29 Other chronic Of 12/14/13 DO, MPH pain 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 M54.5 Low back pain M99.03 Segmental and somatic dysfunction of lumbar region M54.2 Cervicalgia M99.01 Segmental and somatic dysfunction of cervical region M54.6 Pain in thoracic spine M99.02 Segmental and somatic dysfunction of thoracic region K21.9 Gastro-esophageal reflux disease without esophagitis I50.9 Heart failure, unspecified R53.83 Other fatigue Z79.891 [facility] (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 Assessments Date Code Description Provider 09/16/2019 G89.29 Other chronic pain Luu, Chuck, [...] classified Luu, Chuck, DO, MPH 09/16/2019 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891 [facility] (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 Luu, Chuck [...] MPH 04/24/2019 M53.3 Sacrococcygeal disorders, not elsewhere Luu, Chuck, DO, MPH classified 04/24/2019 M54.5 Low back pain Luu, Chuck, DO, MPH 04/24/2019 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 Luu, Chuck, DO, MPH arthritis of multiple sites 04/24/2019 R53.83 Other fatigue Luu, Chuck, DO, MPH 04/24/2019 Z79.891 [facility] (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 Luu, Chuck , DO, MPH 04/02/2019 G89.29 Other chronic pain Luu, Chuck, DO, MPH 04/02/2019 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 Luu, Chuck, DO, MPH arthritis of multiple sites 04/02/2019 M53.3 Sacrococcygeal disorders, not elsewhere Luu, Chuck, DO, MPH classified 04/02/2019 M54.5 Low back pain Luu, Chuck, DO, MPH 03/20/2019 G89.29 Other chronic pain Luu, Chuck, DO, MPH 03/20/2019 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 Chuck Luu DO, MPH arthritis of multiple sites 03/20/2019 M54.5 Low back pain Chuck Luu DO MPH 03/20/2019 M99.03 Segmental and somatic dysfunction of lumbar Chuck Luu DO, MPH region 03/20/2019 M54.2 Cervicalgia Chuck Luu DO MPH 03/20/2019 M99.01 Segmental and somatic dysfunction of Chuck Luu DO, MPH cervical region 03/20/2019 M54.6 Pain in thoracic spine Chuck Luu DO MPH 03/20/2019 M99.02 Segmental and somatic dysfunction of Chuck Luu DO, MPH thoracic region 03/20/2019 K21.9 Gastro-esophageal reflux disease without Chuck Luu DO, MPH esophagitis 03/20/2019 I50.9 Heart failure, unspecified Chuck Luu DO MPH 03/20/2019 R53.83 Other fatigue Chuck Luu DO MPH 03/20/2019 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 Symptoms and complaints discussed and reviewed today. No significant changes in physical findings. Continue current medical pain management.M54.2 CervicalgiaComments:Chronic. Symptoms and complaints discussed and reviewed today. No significant changes in physical findings. Continue current medical pain management.M99.01 Segmental and somatic dysfunction of cervical regionComments:Chronic. Symptoms and complaints discussed and reviewed today. Somatic dysfunctions noted warrantingOMT. Continue current medical pain management and OMT. [id number]. OMT performed.M54.6 Pain in thoracic spineComments: Chronic.Symptoms and complaints discussed and reviewed today. No significant changes in physical findings. Continue current medical pain management.M99.02 Segmental and somatic dysfunction of thoracic regionComments:Chronic. Symptoms and complaints discussed and reviewed today. Notable somatic dysfunctions noted warranting OMT. Continue current medical pain management and OMT. [id number]. OMT performed after evaluation. HVLA.M54.5 Low back painComments:Chronic. Symptoms and complaints discussed and reviewed today.No changes in physical findings. Patient is stable and comfortable when current medical therapy is rendered.M99.03 Segmental and somatic dysfunction of lumbar regionComments: Chronic. Symptoms and complaints discussed and reviewed today. Lumbar somatic dysfunctions noted warranting OMT. Continue current medical pain management and OMT. [id number]. OMT performed after evaluation. HVLA.M46.1 Sacroiliitis, not elsewhere classifiedComments:Symptoms and complaints discussed and reviewed today. Continue current medical pain management. Physical findings warrant injection therapy.Z79.891 [facility] (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New Labs: Urine Drug Screen, Ordered: 09/16/19Comments:Urine drug screen sample taken. Rapid Point of [...] considered standard of care.AllComments:Continue current medical pain management ; injection therapy, osteopathic manipulation, PT / modalities, [...] while maintaining satisfactory side effect profile andminimizing long-term end-organ damage. Importance of regular nutrition throughout the day discussed.Activity as toleratedContinue with PCP Functional Status Description No Information Available Mental Status Description No Information Available Referrals Description No Information Available
--- OUTSIDE RECORDS SUMMARY | 2019-10-15 16:45 | XMS REPORT | Continuity of Care Document ---
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 Problems Provider Date Myalgia, other site LuuChuck martinez DO, MPH Onset: 10/05/2019 Thoracic and lumbosacral neuritis LuuChuck martinez, DO, MPH Onset: 10/05/2019 Sacrococcygeal disorders, not elsewhere Luu, Chuck, DO, MPH Onset: 2018 classified Solitary sacroiliitis Luu, Chuck, DO, MPH Onset: 09/21/2019 Synovitis and tenosynovitis Luu, Chuck, DO, MPH Onset: 09/21/2019 Somatic dysfunction of lumbar region Luu, Chuck, DO, MPH Onset: 09/21/2019 Low back pain Luu, Chuck, DO, MPH Onset: 09/21/2019 Somatic dysfunction of pelvic region Luu, Chuck, DO, MPH Onset: 09/21/2019 Arthralgia of the pelvic region and thigh Luu, Chuck, DO, MPH Onset: 2018 Somatic dysfunction of sacroiliac joint Luu, Chuck, DO, MPH Onset: 2018 Chronic pain Luu, Chuck, DO, MPH Onset: 09/21/2019 Social History Type Date Description Comments Sex Unknown ETOH Use Denies alcohol use Tobacco Use Start: Unknown End: Unknown Patient is a former smoker Recreational Drug Use Denies Drug Use Smoking Status Reviewed: 10/05/19 Patient is a former smoker Allergies, Adverse [...] Available Vital Signs Date Vital Result Comment 10/05/2019 12:07pm BP Systolic 144 mmHg BP Diastolic 88 mmHg Heart Rate 86 /min Respiratory Rate 20 /min Height 61 inches 5'1" Weight 125.00 lb Pain Level 8 Pain at this time. Pain Level With Medicine 7 on average with meds Pain Level Without Medicine 9 without meds Pain Level After Procedure 3 BP Systolic Recheck 128 mmHg Pulse: 94 BP Diastolic Recheck 80 mmHg Pulse: 94 BMI (Body Mass Index) 23.6 kg/m2 10/01/2019 10:37am BP Systolic 128 mmHg BP Diastolic 84 mmHg Heart Rate 86 /min Respiratory Rate 20 /min Height 61 inches 5'1" Weight 124.00 lb Pain Level 6 Pain at this time. Pain Level With Medicine 5 on average with meds Pain Level Without Medicine 9 without meds BMI (Body Mass Index) 23.4 kg/m2 Procedures Date Code Description Status 09/21/2019 32429 Omt 3-4 Body Regions Completed 09/21/201909314 Arthrocentesis/Aspiration/Inj Of Major Joint Or Bursa W/ Completed Ultra 09/21/2019 Arthrocentesis/Aspiration/Inj Of Major Joint Or Bursa W/ Completed Ultra 09/16/2019 07425 Omt 3-4 Body Regions Completed 08/30/2019 80928 Omt 1-2 Body Regions Completed 08/30/2019 Arthrocentesis/Aspiration/Inj Of Major Joint Or Bursa W/ Completed Ultra 07/10/2019 Arthrocentesis/Aspiration/Inj Of Major Joint Or Bursa W/ Completed Ultra 06/25/2019 79065 Omt 5-6 Body Regions Completed 05/23/2019 12069 Omt 5-6 Body Regions Completed 05/04/2019 16211 Omt 3-4 Body Regions Completed 05/04/2019 86397 Arthrocentesis/Aspiration/Inj Of Major Joint Or Bursa W/ Completed Ultra 04/24/2019 32457 Therapeutic, Prophylactic Or Diagnostic Injection Subq/Im Completed Medical Devices Description No Information Available Encounters Type Date Location Provider Dx Diagnosis Office Visit 10/01/2019 Main Office as Of Chuck Luu DO G89.29 Other chronic pain 10:45a 12/14/13 MPH M25.551 Pain in right hip M25.552 Pain in left hip M54.2 Cervicalgia 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 Office Visit 09/21/2019 9:00a Main Office as Chuck Luu G89.29 Other chronic Of 12/14/13 DO, MPH pain M46.1 Sacroiliitis, not elsewhere classified M53.3 Sacrococcygeal [...] region M46.1 Sacroiliitis, not elsewhere classified 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 Office Visit 08/30/2019 1:30p Main Office as Chuck Luu G89.29 Other chronic Of 12/14/13 DO, MPH pain M25.551 Pain in right hip M25.552 Pain in left hip M99.05 Segmental and somatic dysfunction of pelvic region M46.1 Sacroiliitis, not elsewhere classified Office Visit 07/10/2019 3:00p Main Office as Chuck Luu, G89.29 Other chronic Of 12/14/13 DO, MPH pain M54.2 Cervicalgia M54.6 Pain in thoracic spine M54.5 Low back pain M53.3 Sacrococcygeal disorders, not elsewhere classified M25.551 Pain in right hip M25.552 Pain in left hip 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 Office Visit [...] Z79.891 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 (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 M99.05 Segmental [...] Office Visit 04/24/2019 11:15a Main Office as Luu, Chuck, G89.29 Other chronic Of 12/14/13 DO, MPH pain M53.3 Sacrococcygeal disorders, not elsewhere classified M54.5 Low back pain 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 R53.83 Other fatigue Z79.891 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 (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 Assessments Date Code Description Provider 10/05/2019 G89.29 Other chronic pain Luu, Chuck, DO, MPH 10/05/2019 M25.551 Pain in right hip Luu, Chuck, DO, MPH 10/05/2019 M79.18 Myalgia, other site Luu, Chuck, DO, MPH 10/05/2019 M54.17 Radiculopathy, lumbosacral region Luu, Chuck, DO, MPH 10/05/2019 M99.05 Segmental and somatic dysfunction of pelvic Luu, Chuck, DO, MPH region 10/05/2019 M70.61 Trochanteric bursitis, right hip Luu, Chuck, DO, MPH 10/01/2019 G89.29 Other chronic pain Luu, Chuck, DO, MPH 10/01/2019 M25.551 Pain in right hip Luu, Chuck, DO, MPH 10/01/2019 M25.552 Pain in left hip Luu, Chuck, DO, MPH 10/01/2019 M54.2 Cervicalgia Luu, Chuck, DO, MPH 10/01/2019 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 Luu, Chuck [...] classified Luu, Chuck, DO, MPH 09/16/2019 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 Luu, Chuck [...] hip Luu, Chuck, DO, MPH 07/10/2019 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 Luu, Chuck [...] hip Luu, Chuck, DO, MPH 06/25/2019 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 Luu, Chuck , DO, MPH 06/25/2019 M99.05 Segmental and somatic dysfunction of pelvic Luu, Chuck, DO, MPH region 05/23/2019 G89.29 Other chronic pain Luu, Chuck, DO, MPH 05/23/2019 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 Luu, Chuck, DO, MPH arthritis of multiple sites 05/23/2019 M54.5 Low back pain Luu, Chuck, DO, MPH 05/23/2019 M99.03 Segmental and somatic dysfunction of lumbar Ulu, Chuck, DO, MPH region 05/23/2019 M54.2 Cervicalgia [...] fatigue Luu, Chuck, DO, MPH 05/23/2019 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 Luu, Chuck [...] sites 05/04/2019 M53.3 Sacrococcygeal disorders, not elsewhere Chuck Luu DO, MPH classified 05/04/2019 M99.04 Segmental and somatic dysfunction of sacral Chuck Luu DO, MPH region 05/04/2019 M54.5 Low back pain Chuck Luu DO, MPH 05/04/2019 M99.03 Segmental and somatic dysfunction of lumbar Chuck Luu DO, MPH region 05/04/2019 M25.551 Pain in right hip Chuck Luu DO, MPH 05/04/2019 M99.05 Segmental and somatic dysfunction of pelvic Chuck Luu DO, MPH region 04/24/2019 G89.29 Other chronic pain Chuck Luu DO MPH 04/24/2019 M53.3 Sacrococcygeal disorders, not elsewhere Chuck Luu DO, MPH classified 04/24/2019 M54.5 Low back pain Chuck Luu DO MPH 04/24/2019 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 Symptoms and complaints discussed and reviewed today. No significant changes in physical findings. Continue current medical pain management.M25.551 Pain in right hipComments:Injection therapy today. Joint injection performed using musculoskeletal ultrasound for visualization and demarcation of pertinent structures for needle guided injection. See procedure sheet.M79.18 Myalgia, other siteComments:Injection therapy today - Trigger Point injections. Informed consent given/refusal reviewed. See procedure sheet. Symptoms and complaints discussed and reviewed today. Physical findings warrant interventional/injection therapy. Patient is stable and comfortable when current medical therapy isrendered.M54.17 Radiculopathy, lumbosacral regionComments:Chronic. Symptoms and complaints discussed and reviewed today. Notable physical findings reviewed; pain levels and this patient 's complaint of less functionality warrant intervention; patient is stableon current medical therapy. Injection therapy performed today - nerve block to right superior gluteal nerve. Informed consent given/refusal reviewed. See procedure sheet.M99.05 Segmental and somatic dysfunction of pelvic regionComments:Chronic. Symptoms and complaints discussed and reviewed today. Pelvic somatic dysfunctions noted warranting OMT. Continue current medical pain management and OMT. Pelvic Shear. OMT performed. LESAR. HVLA.M70.61 Trochanteric bursitis, right hipComments:Symptoms and complaints discussed and reviewed today. Continue current medical pain management. Physical findings reviewed and warrant intervention. Injection therapy performed today. See procedure sheet. Musculoskeletal ultrasound performed over right trochanteric head showing distinct hypoechoic areas indicating inflammation of muscle insertions (enthesopathies) along the trochanteric head.Injection therapy performed under musculoskeletal ultrasound needle guidance; informed consent/ refusal reviewed. See procedure sheet.AllComments:Continue current medical pain management; injection therapy, osteopathic [...] while maintaining satisfactory side effect profile andminimizing longterm end-organ damage. Importance of regular nutrition throughout the day discussed.Activity as toleratedContinue with PCP Functional Status Description No Information Available Mental Status Description No Information Available Referrals Description No Information Available
--- OUTSIDE RECORDS SUMMARY | 2019-10-15 16:45 | XMS REPORT | Continuity of Care Document ---
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 Problems Description No Information Available Social History Type Date Description Comments Sex Unknown ETOH Use Denies alcohol use Tobacco Use Start: Unknown End: Unknown Patient is a former smoker Recreational Drug Use Denies Drug Use Smoking Status Reviewed: 08/30/19 Patient is a former smoker Allergies, Adverse [...] Available Vital Signs Date Vital Result Comment 08/30/2019 1:35pm BP Systolic 136 mmHg BP [...] Pulse:76 BMI (Body Mass Index) 24.6 kg/m2 07/10/2019 2:56pm BP Systolic 120 mmHg BP Diastolic 74 mmHg Heart Rate 76 /min Respiratory Rate 20 /min Height 61 inches 5'1" Weight 130.00 lb Pain Level 7 Pain at this time. Pain Level With Medicine 6 on average with meds Pain Level Without Medicine 9 without meds Pain Level After Procedure 3 BP Systolic Recheck 120 mmHg Pulse: 72 BP Diastolic Recheck 70 mmHg Pulse: 72 BMI (Body Mass Index) 24.6 kg/m2 Results Description No Information Available Procedures Date Code Description Status 07/10/2019 Arthrocentesis/Aspiration/Inj Of Major Joint Or Bursa W/ Completed Ultra 06/25/2019 75391 Omt 5-6 Body Regions Completed 05/23/2019 09505 Omt 5-6 Body Regions Completed 05/04/2019 18689 Omt 3-4 Body Regions Completed 05/04/2019 Arthrocentesis/Aspiration/Inj Of Major Joint Or Bursa W/ Completed Ultra 04/24/2019 83889 Therapeutic, Prophylactic Or Diagnostic Injection Subq/Im Completed 04/02/2019 Arthrocentesis/Aspiration/Inj Of Major Joint Or Bursa W/ Completed Ultra 03/20/2019 81408 Omt 3-4 Body Regions Completed 03/20/2019 06271 Therapeutic, Prophylactic Or Diagnostic Injection Subq/Im Completed Medical Devices Description No Information Available Encounters Type Date Location Provider Dx Diagnosis Office Visit 07/10/2019 Main Office as Of Chuck Luu DO, G89.29 Other chronic pain 3:00p 12/14/13 MPH M54.2 Cervicalgia M54.6 Pain in thoracic spine M54.5 Low back pain M53.3 Sacrococcygeal disorders, not elsewhere classified M25.551 Pain in right hip M25.552 Pain in left hip Z79.891 halfway (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 Office Visit 06/25/2019 10:00a Main Office as Chuck Luu G89.29 Other chronic Of 12/14/13 , MPH pain M54.2 Cervicalgia M99.01 Segmental and somatic dysfunction of cervical region M54.6 Pain in thoracic spine M99.02 Segmental and somatic dysfunction of thoracic region M54.5 Low back pain M99.03 Segmental and somatic dysfunction of lumbar region M53.3 Sacrococcygeal disorders, not elsewhere classified M99.04 Segmental and somatic dysfunction of sacral region M25.551 Pain in right hip M25.552 Pain in left hip 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 M99.05 Segmental and somatic dysfunction of pelvic region Office Visit 05/23/2019 10:15a Main Office as Chuck Luu, G89.29 Other [...] not elsewhere classified R53.83 Other fatigue 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 M99.04 Segmental and somatic dysfunction of sacral region G90.3 Multi-system degeneration of the autonomic nervous system M25.552 Pain in left hip M25.551 Pain in right hip M99.05 Segmental and somatic dysfunction of pelvic region Office Visit 05/04/2019 9:00a Main Office as Chuck Luu, G89.29 Other [...] Visit 04/24/2019 11:15a Main Office as Chuck Luu, G89.29 Other chronic Of 12/14/13 DO, MPH pain M53.3 Sacrococcygeal disorders, not elsewhere classified M54.5 Low back pain 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 R53.83 Other fatigue 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 Office Visit 04/02/2019 10:15a Main Office as Chuck Luu, G89.29 Other chronic Of 12/14/13 DO, MPH pain 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 M53.3 Sacrococcygeal disorders, not elsewhere classified M54.5 Low back pain Office Visit 03/20/2019 11:15a Main Office as LuuChuck martinez, G89.29 Other chronic Of 12/14/13 DO, MPH [...] Heart failure, unspecified R53.83 Other fatigue 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 Assessments Date Code Description Provider 08/30/2019 G89.29 Other chronic pain Luu, Chuck, [...] hip Luu, Chuck, DO, MPH 07/10/2019 Z79.891 halfway (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 Luu, Chuck [...] hip Luu, Chuck, DO, MPH 06/25/2019 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 Luu, Chuck [...] fatigue Luu, Chuck, DO, MPH 05/23/2019 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 Luu, Chuck [...] fatigue Luu, Chuck, DO, MPH 04/24/2019 Z79.891 halfway (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 Luu, Chuck [...] MPH 03/20/2019 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 Luu, Chuck, DO, MPH arthritis of multiple sites 03/20/2019 M54.5 Low back pain Luu, Chuck, DO, MPH 03/20/2019 M99.03 Segmental and somatic dysfunction of lumbar Luu, Chuck, DO, MPH region 03/20/2019 M54.2 Cervicalgia Luu, Chuck, DO, MPH 03/20/2019 M99.01 Segmental and somatic dysfunction of Luu, Chuck, DO, MPH cervical region 03/20/2019 M54.6 Pain in thoracic spine Luu, Chuck, DO, MPH 03/20/2019 M99.02 Segmental and somatic dysfunction of Luu, Chuck, DO, MPH thoracic region 03/20/2019 K21.9 Gastro-esophageal reflux disease without Luu, Chuck, DO, MPH esophagitis 03/20/2019 I50.9 Heart failure, unspecified Luu, Chuck, DO, MPH 03/20/2019 R53.83 Other fatigue Luu, Chuck, DO, MPH 03/20/2019 Z79.891 halfway (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 Luu, Chuck , DO, MPH Plan of Treatment Future Appointment(s):09/21/2019 9:00 am - Chuck Luu, DO, MPH at Main Office as Of 12/14/1409 9:30 am - Chuck Luu DO, MPH at Main Office as Of 12/14/1409 - Chuck Luu DO, MPHG89.29 Other chronic painComments: Chronic. Symptoms and complaints discussed and reviewed today. No significant changes in physical findings. Continue current medical pain management.M25.551 Pain in right hipComments:Chronic. Symptoms and complaints discussed and reviewed today. No significant changes in physical findings. Continue current medical pain management.M25.552 Pain in left hipComments:Chronic. Symptoms and complaints discussed and reviewed today. No significant changes in physical findings. Continue current medical pain management.M99.05 Segmental and somatic dysfunction of pelvic regionComments:Chronic. Symptoms and complaints discussed and reviewed today. Pelvic somatic dysfunctions noted warranting OMT. Continue current medical pain management and OMT. Pelvic Shear. OMT performed. MFR. HVLA.M46.1 Sacroiliitis, not elsewhere classifiedComments: Symptoms and complaints discussed and reviewed today. Continue current medical pain management. Physical findings warrant injection therapy.Injection therapy to right SI joint performed today. Injection therapy performed today under musculoskeletal ultrasound for demarcation of pertinent structures and needle guidance for injection - see procedure sheet.AllComments:The injections that we are requesting on the behalf of the patient areTendon Sheath Injection ( 13621) quantity of 2.If she is able to have injections as a secondary option for pain relief, that may be another option other than increases in opioid medications. Please feel free to contact the office with any questions.All above symptoms and complaints discussed as well as diagnoses reviewed.Continue trial of opioid pain management - note changes below; injection therapy, osteopathic manipulation (OMT), PT / modalities, and consults as needed to manage chronic pain.Side effects discussed; anticipatory guidance given. Patient clearly understands and agrees with all medical treatments and suggestions.All medicines prescribed are adequate and appropriate for this patient's complaint of pain, medical history, physical, and personal goals.Goals of Treatment are to provide adequate and appropriate multidisciplinary medical pain management to increase/ maintain patient's quality of life and functionality while maintaining satisfactory side effect profile and minimizing [facility] end-organ damage. Activity as toleratedContinue with PCP Functional Status Description No Information Available Mental Status Description No Information Available Referrals Description No Information Available
--- OUTSIDE RECORDS SUMMARY | 2019-10-15 16:45 | XMS REPORT | Continuity of Care Document ---
:1975 External Reference #:[id number] Author Name Chuck Luu DO, MPH Address [address] [place] [address], [address] [place] [address] Care Team Providers Name Role Phone Jennifer Gasca MD - Internal Medicine Care Team Information [employer] Problems Active Problems Provider Date Sacrococcygeal disorders, not elsewhere Chuck Luu DO MPH Onset: 2018 classified Solitary sacroiliitis Chuck Luu DO MPH Onset: 09/21/2019 Synovitis and [...] Available Vital Signs Date Vital Result Comment 09/21/2019 8:48am BP Systolic 122 mmHg BP [...] 72 BMI (Body Mass Index) 24.7 kg/m2 09/16/2019 1:05pm BP Systolic 128 mmHg BP Diastolic 78 mmHg Heart Rate 86 /min Respiratory Rate 20 /min Height 61 inches 5'1" Weight 130.00 lb Pain Level 7 Pain at this time. Pain Level With Medicine 6 on average with meds Pain Level Without Medicine 9 without meds BMI (Body Mass Index) 24.6 kg/m2 Results Description No Information Available Procedures Date Code Description Status 09/21/2019 20304 Omt 3-4 Body Regions Completed 09/21/2019 Arthrocentesis/Aspiration/Inj Of Major Joint Or Bursa W/ Completed Ultra 09/21/2019 Arthrocentesis/Aspiration/Inj Of Major Joint Or Bursa W/ Completed Ultra 09/16/2019 68269 Omt 3-4 Body Regions Completed 08/30/2019 79261 Omt 1-2 Body Regions Completed 08/30/2019 Arthrocentesis/Aspiration/Inj Of Major Joint Or Bursa W/ Completed Ultra 07/10/2019 Arthrocentesis/Aspiration/Inj Of Major Joint Or Bursa W/ Completed Ultra 06/25/2019 52953 Omt 5-6 Body Regions Completed 05/23/2019 22416 Omt 5-6 Body Regions Completed 05/04/2019 99555 Omt 3-4 Body Regions Completed 05/04/2019 Arthrocentesis/Aspiration/Inj Of Major Joint Or Bursa W/ Completed Ultra 04/24/2019 19085 Therapeutic, Prophylactic Or Diagnostic Injection Subq/Im Completed [...] region M46.1 Sacroiliitis, not elsewhere classified Z79.891 [facility] (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 Office Visit [...] hip M25.552 Pain in left hip Z79.891 [facility] (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 Office Visit 06/25/2019 10:00a Main Office as Chuck Luu, G89.29 Other [...] hip M25.552 Pain in left hip Z79.891 [facility] (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 M99.05 Segmental [...] not elsewhere classified R53.83 Other fatigue Z79.891 [facility] (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 M99.04 Segmental [...] of multiple sites R53.83 Other fatigue Z79.891 [facility] (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 Office Visit 04/02/2019 10:15a Main Office as LuuChuck martinez, G89.29 Other chronic Of 12/14/13 DO, MPH pain 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 M53.3 Sacrococcygeal disorders, not elsewhere classified M54.5 Low back pain Assessments Date Code Description Provider 09/21/2019 G89.29 Other chronic pain Luu, Chuck, [...] classified Luu, Chuck, DO, MPH 09/16/2019 Z79.891 rn long term care (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 Luu, Chuck [...] hip Luu, Chuck, DO, MPH 07/10/2019 Z79.891 rn long term care (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 Luu, Chuck [...] hip Luu, Chuck, DO, MPH 06/25/2019 Z79.891 [facility] (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 Luu, Chuck [...] fatigue Luu, Chuck, DO, MPH 05/23/2019 Z79.891 [facility] (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 Luu, Chuck [...] fatigue Luu, Chuck, DO, MPH 04/24/2019 Z79.891 rn long term care (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 Luu, Chuck , DO, MPH 04/02/2019 G89.29 Other chronic pain Chuck Luu DO, MPH 04/02/2019 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 Symptoms and complaints discussed and reviewed today. No significant changes in physical findings. Continue current medical pain management.M46.1 Sacroiliitis, not elsewhere classifiedComments:Symptoms and complaints discussed and reviewed today. Continue current medical pain management. Physical findings warrant injection therapy.Injection therapy to left SI joint performed today. Injection therapy performed today under musculoskeletal ultrasound for demarcation of pertinent structures and needle guidance for injection - see procedure sheet.M53.3 Sacrococcygeal disorders, not elsewhere classifiedComments:Chronic. Symptoms and complaints discussed and reviewed today. Notable physical findings warranting injections. Patient is stable and comfortable with current medical therapy. Injection therapyperformed today. Injection therapy performed today under musculoskeletal ultrasound for demarcation of pertinent structures and needle guidance for injection - see procedure sheet.M99.04 Segmental and somatic dysfunction of sacral regionComments:Chronic. Symptoms and complaints discussed and reviewed today. Sacral somatic dysfunctions noted warranting OMT. Continue current medical pain management and OMT. Sacral Torsion. OMT performed after evaluation. HVLA.M25.551 Pain in right hipComments:Chronic. Symptoms and complaints discussed and reviewed today. No significant changes in physical findings. Continue current medical pain management.M25.552 Pain in left hipComments:Chronic. Symptoms and complaints discussed and reviewed today. No significant changes in physical findings. Continue current medical pain management.M99.05 Segmental and somatic dysfunction of pelvic regionComments: Chronic. Symptoms and complaints discussed and reviewed today. Pelvic somatic dysfunctions noted warranting OMT. Continue current medical pain management and OMT. Pelvic Shear. OMT performed. LESAR. HVLA.M54.5 Low back painComments: Chronic. Symptoms and complaints discussed and reviewed today.No changes in physical findings. Patient is stable and comfortable when current medical therapy is rendered.M99.03 Segmental and somatic dysfunction of lumbar regionComments:Chronic. Symptoms and complaints discussed and reviewed today. Lumbar somatic dysfunctions noted warranting OMT. Continue current medical pain management and OMT. [id number]. OMT performed after evaluation. HVLA.M65.88 Other synovitis and tenosynovitis, other siteComments:Chronic. Symptoms and complaints discussed and reviewed today. Physical findings reviewed and warrant intervention. Continue current medical pain management. Injection therapy today - tendon sheath. Informed consent given/refusal reviewed. See procedure sheet.AllComments:Continue current medical pain [...]
== END 2019-10-15 14:51 | disposition home or self-care (01) ==
LOC: UCCORT 13:58
DX: B37.0 Candidal stomatitis (principal); J02.9 Acute pharyngitis, unspecified; J45.909 Unspecified asthma, uncomplicated; Z87.891 Personal history of nicotine dependence; Z79.82 Long term (current) use of aspirin; Z88.1 Allergy status to other antibiotic agents
CPT/HCPCS: 87651; 99212; G0463